=== PATIENT | female | born 1965 | race Caucasian/White ===

== ENCOUNTER 2018-10-31 01:05 | Emergency (ER) | payer BC ==
[~2018-10-31] VITALS: Ht 160 cm; Wt 79.4 kg
[~2018-10-31 01:05] MED LIST: ATIVAN0.5 MG PO; BACID CAPLET1 EACH PO; CELEXA 20 MG TA20 MG PO; CIPRO500 MG PO; FLAGYL500 MG PO; TESSALON PERLE100 MG PO; TOBRAMYCIN SULFA5 ML OP
[2018-10-31 01:42] LABS: ABSOLUTE BASOPHILS 0.1 thou/uL (0.0-0.2); ABSOLUTE EOSINOPHILS 0.3 thou/uL (0.0-0.7); ABSOLUTE LYMPHOCYTES 1.8 thou/uL (0.8-5.3); ABSOLUTE MONOCYTES 0.5 thou/uL (0.0-1.2); BASOPHILS 1.2 %; HEMATOCRIT 35.8 % (37.0-47.0); HEMOGLOBIN 12.1 gm/dL (12.0-15.0); LYMPHOCYTES 20.9 %; MCH 27.5 pg (26.0-34.0); MCHC 33.8 g/dL (28.0-37.0); MCV 81.2 fL (80.0-100.0); MONOCYTES 5.7 %; NUCLEATED RBCS 0 /100WBC; PLATELET COUNT* 327 thou/uL (150-400); POLYS 69.2 %; RBC 4.41 mil/uL (4.20-5.00); RDW-CV 14.5 % (10.5-14.5); WBC 8.6 thou/uL (4.0-11.0)
[2018-10-31 01:45] LABS: CALCIUM 9.3 mg/dL (8.5-10.1); CREATININE 0.9 mg/dL (0.6-1.3); POTASSIUM 3.5 mmol/L (3.5-5.1)
[2018-10-31 01:50] LABS: ALBUMIN 3.4 g/dL (3.4-5.0); TOTAL BILIRUBIN 0.4 mg/dL (<0.1-1.0); TOTAL PROTEIN 6.7 g/dL (6.4-8.2)
[2018-10-31] MEDS ORDERED: ZPAK PO (02:27)
[2018-10-31] MEDS ORDERED: TUSSIONEX PENN115 ML PO (02:27)
[2018-10-31] MEDS ORDERED: PREDNISONE50 MG PO (02:27)
[2018-10-31 02:28] LABS: INFLUENZA A ANTIGEN None Detected (None Detect); INFLUENZA B ANTIGEN None Detected (None Detect)
[2018-10-31 02:40] VITALS: BP 143/79
--- NOTE | 2018-11-01 11:14 | EKG ---
[place] [address] ELECTROCARDIOGRAM REPORT Name: DAIN WORRELL Room: [facility]#: [id number] Admission: 10/31/18 Attend Phys: Discharge: 10/31/18 Date of : 61 Report #: [id number] THIS REPORT FOR: //name// [facility] ED Test Date: 2018-10-31 Test Time: 01:14:04 Pat Name: DAIN WORRELL Department: Room: Gender: F Ammunition Specialist: FÉLIX : 1965 Requested By: Kala Jean Order Number: [id number] MD: Brad Yap Measurements Intervals [place] Rate: 92 P: 46 [place]: 131 QRS: 6 QRSD: 77 T: 37 QT: 349 QTc: 432 Interpretive Statements Sinus rhythm Low voltage, precordial leads Baseline wander in lead(s) V6 Compared to ECG 08/02/2017 21:23:17 No significant changes Electronically Signed On 11-01-2018 11:14:27 CUT OUT OPERATOR by Brad Yap [email or web address] <ELECTRONICALLY SIGNED> By: Brad Yap MD, [facility] 11/01/18 1114 3 Brad Yap MD, [facility] /EPI
== END 2018-10-31 02:41 | disposition home or self-care (01) ==
LOC: M.ERS 01:05
PROVIDERS: Personal Emergency Response Attendant
DX: J06.9 Acute upper respiratory infection, unspecified (principal); F32.9 Major depressive disorder, single episode, unspecified

== ENCOUNTER 2019-05-02 10:40 | Emergency (ER) | payer BC ==
[~2019-05-02] VITALS: Ht 160 cm; Wt 79.4 kg
[~2019-05-02 10:40] MED LIST changes: +PREDNISONE50 MG PO; +TUSSIONEX PENN115 ML PO; +ZPAK PO
[2019-05-02 10:46] VITALS: BP 144/77
[2019-05-02] MEDS ORDERED: ZOLOFT25 MG PO (10:49)
[2019-05-02] MEDS ORDERED: IBUPROFEN 200200 M1 PO (10:49)
[2019-05-02] MEDS ORDERED: ACETAMINOPHEN-1 EAC1 PO (10:58)
[2019-05-02] MEDS ORDERED: AMOXICILLIN 50500 MG PO (10:58)
== END 2019-05-02 11:03 | disposition home or self-care (01) ==
LOC: M.ERS 10:40
DX: K04.7 Periapical abscess without sinus (principal); Z98.890 Other specified postprocedural states; Z90.710 Acquired absence of both cervix and uterus

== ENCOUNTER → 2019-09-28 | Outpatient (CLI) | payer BC ==
[~2019-09-28] MED LIST changes: +ACETAMINOPHEN-1 EAC1 PO; +AMOXICILLIN 50500 MG PO; +IBUPROFEN 200200 M1 PO; +ZOLOFT25 MG PO
== END ==
LOC: M.RAD 09:00
DX: Z12.31 Encounter for screening mammogram for malignant neoplasm of breast (principal)

== ENCOUNTER → 2020-12-15 | Outpatient (CLI) | payer BC | LOC: M.LAB 15:39 | PROVIDERS: ATTEND Orthopaedic Surgery | DX: Z01.812 Encounter for preprocedural laboratory examination (principal); Z20.822 Contact with and (suspected) exposure to COVID-19; S83.241A Other tear of medial meniscus, current injury, right knee, initial encounter; X58.XXXA Exposure to other specified factors, initial encounter; Y93.89 Activity, other specified; Y92.89 Other specified places as the place of occurrence of the external cause; Y99.8 Other external cause status ==

== ENCOUNTER → 2020-12-19 | Day surgery (SDC) | payer BC ==
[~2020-12-19] MED LIST changes: +HYDROCODON-ACE1 EAC7 PO
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
== END | disposition home or self-care (01) ==
LOC: M.SUR 05:30
PROVIDERS: ATTEND Orthopaedic Surgery
DX: S83.231A Complex tear of medial meniscus, current injury, right knee, initial encounter (principal); Z53.8 Procedure and treatment not carried out for other reasons; M25.571 Pain in right ankle and joints of right foot; F32.9 Major depressive disorder, single episode, unspecified; G43.909 Migraine, unspecified, not intractable, without status migrainosus; K21.9 Gastro-esophageal reflux disease without esophagitis; X58.XXXA Exposure to other specified factors, initial encounter; Y93.89 Activity, other specified; Y92.89 Other specified places as the place of occurrence of the external cause

== ENCOUNTER → 2020-12-20 | Day surgery (SDC) | payer BC ==
--- NOTE | ~2020-12-20 | OP ---
[address] [address] OPERATIVE REPORT Name: DAIN WORRELL Room: [facility].#: [id number] Admission: 12/20/20 Attend Phys: Aquiles Bills II Discharge: Date of : 61 Report #: [id number] THIS REPORT FOR: cc: Ad Hughes Adam J DO ~ Greiner, Robert F. II DO DATE OF SERVICE: 12/20/2020 PREOPERATIVE DIAGNOSIS: Right knee medial meniscus tear. POSTOPERATIVE DIAGNOSES: 1. Right knee medial meniscus tear. 2. Grade 3 chondromalacia, patellofemoral groove. PROCEDURES PERFORMED: 1. Right knee arthroscopic surgery with partial medial meniscectomy. 2. Abrasion chondroplasty, patellofemoral groove down to bleeding bone. SURGEON: Aquiles Bills II, DO CLINICAL ADMINISTRATIVE COORDINATOR: MOISE Bhatt ANESTHESIA: Per operative record. ESTIMATED BLOOD LOSS: Minimal. ANTIBIOTICS: Per operative record. DRAINS: None. COMPLICATIONS: None. CONDITION: The patient is stable to recovery room. DESCRIPTION OF PROCEDURE: The patient was taken to the operative suite, placed supine on the operating table, given appropriate anesthesia. The patient's right knee was sterilely prepped and draped. Surgery began by medial and lateral portal incision. The arthroscope was advanced within the joint. There was shown to be a posterior horn medial meniscus tear extending around to the medial margin. This was debrided utilizing basket and shaver back to good stable margins. There was also shown to be grade 3 chondromalacia, patellofemoral groove. Utilizing shaver, an abrasion chondroplasty was performed down to bleeding bone and then smoothed using Coblation wand. Lateral meniscus was probed and shown to be intact. ACL and PCL were intact. Final irrigation of the knee was then performed, it was then closed with a 4-[address] [place] [address] OPERATIVE REPORT Name: DAIN WORRELL Room: [facility]#: [id number] Admission: 12/20/20 Attend Phys: Aquiles Bills II Discharge: Date of : 61 Report #: [id number] in simple fashion. Dermabond and sterile dressing applied. The patient transported to recovery room in stable condition. Counts were correct throughout the procedure. By: [id number] Bills II, DO /nt
== END | disposition home or self-care (01) ==
LOC: M.SUR 06:22
PROVIDERS: ATTEND Orthopaedic Surgery
DX: S83.231A Complex tear of medial meniscus, current injury, right knee, initial encounter (principal); M22.41 Chondromalacia patellae, right knee; M25.561 Pain in right knee; F41.9 Anxiety disorder, unspecified; F32.9 Major depressive disorder, single episode, unspecified; G43.909 Migraine, unspecified, not intractable, without status migrainosus; K21.9 Gastro-esophageal reflux disease without esophagitis; Z98.890 Other specified postprocedural states; Z90.49 Acquired absence of other specified parts of digestive tract; Z90.710 Acquired absence of both cervix and uterus; Z98.51 Tubal ligation status; Z79.899 Other long term (current) drug therapy; X58.XXXA Exposure to other specified factors, initial encounter; Y93.89 Activity, other specified; Y92.89 Other specified places as the place of occurrence of the external cause; Y99.8 Other external cause status